=== PATIENT | female | born 1960 | race Caucasian/White ===

== ENCOUNTER 2019-05-09 05:14 | Day surgery (SDC) | payer OTHER ==
[2019-05-09] MEDS ORDERED: MACROBID 100 M100 MG PO (11:18)
[2019-05-09] MEDS ORDERED: CODE1TAB37 PO (11:19)
== END 2019-05-09 15:35 | disposition home or self-care (01) ==
LOC: CIR.AMB 05:14
DX: N39.3 Stress incontinence (female) (male) (principal)
CPT/HCPCS: 57288; C1771